=== PATIENT | female | born 1965 | race Caucasian/White ===

== ENCOUNTER 2017-05-22 11:22 | Emergency (ER) | payer MEDICAID, OTHER ==
[~2017-05-22] VITALS: Ht 162.6 cm; Wt 113.6 kg
[2017-05-22 11:26] VITALS: BP 132/84
[2017-05-22] MEDS ORDERED: BUSP5TAB20 PO (11:29)
[2017-05-22] MEDS ORDERED: PARO20TA24 PO (11:29)
[2017-05-22] MEDS ORDERED: LEVO200 PO (11:29)
[2017-05-22] MEDS ORDERED: ASPI-556 PO (11:29)
[2017-05-22] MEDS ORDERED: METF500T4 PO (11:29)
[2017-05-22] MEDS ORDERED: ATOR20TA86 PO (11:29)
== END 2017-05-22 13:32 | disposition home or self-care (01) ==
LOC: EMS 11:23
DX: Z13.89 Encounter for screening for other disorder (principal); E11.649 Type 2 diabetes mellitus with hypoglycemia without coma; E03.9 Hypothyroidism, unspecified; F15.90 Other stimulant use, unspecified, uncomplicated
CPT/HCPCS: 99281